=== PATIENT | female | born 1965 | race Caucasian/White ===

== ENCOUNTER → 2024-11-19 | Outpatient (CLI) | payer BC ==
--- NOTE | 2024-11-19 12:21 | CA ---
Stress Echo Report Gertrudis Pimentel Age: 59 Gender: F : 1965 Exam Date: 11/19/2024 11:03 Exam Location: [facility] Ht (in): 62 Wt (lb): 130 Ordering Physician: Trent Lynn DO Referring Physician: DESTIN,, Viticulture Teacher: Rae Sam RDCS Technologist Procedure CPT: Indication: R07.9 CHEST PAIN, UNSPECIFIED ICD-9 Codes: Rhythm: Patient History: Chest tightness. Cardiac Medications: Medications in past 24 hours: Contrast: Stress Results Protocol: Anjel Total dose(mL): Exercise Duration (min:sec): 9.[address] Depression (mm): 0 Angina Score: 0 Larios Score: 0 METS: 10.3 Resting HR: 91 Resting BP: 130 / 66 Peak HR: 163 Peak BP: / 72 Max Predicted HR: 160 102 % Max Predicted HR Target HR: 136 Double Product: Stress Summary: The patient's target heart rate was achieved The hemodynamic response to exercise was normal BP Response: Normal Reason for Termination: Reached target heart rate or work-load. , Maximal effort/unable to continue Cardiac Symptoms: No symptoms ECG Analysis Resting ECG: Normal sinus rhythm, normal ECG Stress ECG: No abnormal ST/T wave changes with exercise Arrhythmia: None Echo Analysis Resting Echo: Normal resting echocardiogram. Peak Echo Analysis: Normal wall thickening and motion with decrease in the cavity size MEASUREMENTS (Male/Female) Normal Values CONCLUSIONS 1. Good exercise tolerance with normal electrocardiographic response to exercise 2. Normal stress echocardiogram with no evidence of stress- induced ischemia Dr. Cherry Colvin MD (Electronically Signed) Final Date: 19 November 2024 12:20
== END | disposition home or self-care (01) ==
LOC: RADNMMAIN 10:56
PROVIDERS: ATTEND Internal Medicine
DX: R07.9 Chest pain, unspecified (principal)
CPT/HCPCS: 93351

== ENCOUNTER → 2025-01-19 | Outpatient (CLI) | payer BC ==
--- NOTE | 2025-01-19 14:35 | MM ---
Reason for Exam: Screening (asymptomatic). Patient History: Menarche at age 13. Postmenopausal. 07/28/2009, Bilateral Implants. Risk Values: Sandrita 5 year model risk: 0.9%. NCI Lifetime model risk: 4.9%. Tissue Density: The breasts are heterogeneously dense, which may obscure small masses. Findings: Analyzed By CAD. Bilateral breast implants appear intact. Right breast: There is no suspicious group of microcalcifications or new suspicious mass. Left breast: Retroareolar asymmetry 19 mm from the nipple measuring 7 mm. Lateral aspect on CCID view. Possibly slightly inferior and MLOID view. Overall Assessment: Incomplete: need additional imaging evaluation, BI-RAD 0 Management: Diagnostic Breast Ultrasound of the left breast. [facility] will attempt to contact patient to return for supplemental views and ultrasound if indicated. Patient should continue monthly self-breast exams. A clinical breast exam by your physician is recommended on an annual basis. This exam should not preclude additional follow-up of suspicious palpable abnormalities. Note on Sandrita scores and lifetime risk: 1. A Sandrita score greater than 3% is considered moderate risk. If this is the case, consider specialist referral to assess eligibility for a risk reducing agent. 2. If overall lifetime risk for the development of breast cancer is 20% or higher, the patient may qualify for future screening with alternating mammogram and breast MRI. [facility], , 01/19/2025 2:31 PM. Electronically signed and approved by: Reji Lanza DO
--- NOTE | 2025-01-20 15:28 | BD ---
EXAMINATION TYPE: Axial Bone Density DATE OF EXAM: 01/19/2025 CLINICAL HISTORY: 59 years old Female. ICD-10 CODE: L20492, Z780 OSTEO SCREENING , Additional Histor y: Height: 62 Weight: 127 FRAX RISK QUESTIONS: Family History (Parent hip fracture): no History of Fracture in Adulthood: no Secondary Osteoporosis: no RISK FACTORS HISTORY OF: Surgery to Spine/Hip(right/left)/Wrist (right/left): no MEDICATIONS: Thyroid Medications: no Osteoporosis Medications: no EXAM MEASUREMENTS: Bone mineral densitometry was performed using the [employer] System. Bone mineral density as measured about the Lumbar spine is: ----- L1-L4(G/cm2): 0.826 T Score Values are as follows: ----- L1: -2.1 ----- L2: -2.6 ----- L3: -3.2 ----- L4: -3.8 ----- L1-L4: -2.9 Z Score Values are as follows: ----- L1: -0.6 ----- L2: -1.2 ----- L3: -1.7 ----- L4: -2.3 ----- L1-L4: -1.5 Bone mineral density baseline Bone mineral density about the R hip (g/cm2): 0.630 Bone mineral density about the L hip (g/cm2): 0.642 T Score values are as follows: -----R Neck: -3.3 -----L Neck: -2.9 -----R Total: -3.0 -----L Total: -2.9 Z Score values are as follows: -----R Neck: -1.9 -----L Neck: -1.5 -----R Total: -1.9 -----L Total: -1.8 Bone mineral density baseline FRAX%s: The graph provided illustrates a 16.6% chance for a major osteoporotic fx and a 5.7% chance f or the hips probability for fx in 10 years time. IMPRESSION: Osteoporosis (T Score less than -2.5). There is increased fracture risk and therapy is usually indicated based on age. Re-Screen 1-2 years. NOTE: T-SCORE=SD OF THE YOUNG ADULT MEAN. [facility], , 01/20/2025 3:25 PM
== END | disposition home or self-care (01) ==
LOC: RADMAMWWP 13:12
PROVIDERS: ATTEND Internal Medicine
DX: Z12.31 Encounter for screening mammogram for malignant neoplasm of breast (principal); Z13.820 Encounter for screening for osteoporosis; R92.333 Mammographic heterogeneous density, bilateral breasts; M81.0 Age-related osteoporosis without current pathological fracture; Z78.0 Asymptomatic menopausal state; Z98.82 Breast implant status
CPT/HCPCS: 77063; 77067; 77080

== ENCOUNTER → 2025-01-25 | Outpatient (CLI) | payer BC ==
--- NOTE | 2025-01-25 13:04 | USB ---
Reason for Exam: Additional evaluation requested from abnormal screening. Patient History: Menarche at age 13. Postmenopausal. 07/28/2009, Bilateral Implants. Risk Values: Sandrita 5 year model risk: 0.9%. NCI Lifetime model risk: 4.9%. Technique: Method: Targeted. Prior Study Comparison: 01/19/2025 Bilateral MG 3D screen mammo imp/cad., [facility]. Findings: The lateral section of the breast of the left breast, the axilla of the left breast and the retroareolar of the left breast were scanned. Targeted ultrasound along the lateral half, 12:00 to 6:00 including scanning of the subareolar region and axilla. Underlying breast implant is noted. At the 4:00 position, 2 cm from the nipple, mammographic correlate, there is a minimally complex cyst versus bilobed cyst measuring 9 x 8 x 3 mm. No other solid or cystic lesion or axillary adenopathy. Overall Assessment: Probably benign, BI-RAD 3 Management: Diagnostic Mammogram of the left breast in 6 months. A clinical breast exam by your physician is recommended on an annual basis and results should be correlated with mammographic findings. This exam should not preclude additional follow-up of suspicious palpable abnormalities. Results were given to the patient verbally at the time of exam. [facility], , 01/25/2025 1:00 PM. Electronically signed and approved by: Omar Florez M.D. Radiologist
== END | disposition home or self-care (01) ==
LOC: RADUSWWP 12:27
PROVIDERS: ATTEND Internal Medicine
DX: R92.8 Other abnormal and inconclusive findings on diagnostic imaging of breast (principal); Z78.0 Asymptomatic menopausal state; Z98.82 Breast implant status

== ENCOUNTER → 2025-02-02 | Outpatient (CLI) | payer BC ==
--- NOTE | 2025-02-02 14:25 | CT ---
EXAMINATION TYPE: CT sinus wo/w con DATE OF EXAM: 02/02/2025 COMPARISON: None CLINICAL INDICATION: Female, 59 years old with history of J32.9 SINUSITIS; PHH, sinusitis TECHNIQUE: CT scan of the sinuses is performed without contrast, axial images are obtained, coronal r eformatted images are also reviewed. CT DLP: [address] CTDI: mGy Automated exposure control for dose reduction was used. FINDINGS: The frontal sphenoid and maxillary sinuses are well aerated. There is a single ethmoid air cell with a small focal area of mucosal thickening. The nasal cavity is intact without deviation of nasal septu m or mass involving the turbinates. The ostial complexes are patent. Visualized portion of mastoid air cells show no abnormal opacification. The globes are intact bilate rally. IMPRESSION: Minimal inflammatory change involving the ethmoid air cells with no other significant abnormality see n of the paranasal sinuses or mastoid air cells. [facility], Workstation: ERAN 02/02/2025 2:23 PM
== END | disposition home or self-care (01) ==
LOC: RADCTMAIN 13:27
PROVIDERS: ATTEND Internal Medicine
DX: J32.9 Chronic sinusitis, unspecified (principal); J34.89 Other specified disorders of nose and nasal sinuses
CPT/HCPCS: 70488; Q9967